=== PATIENT | female | born 1930 | race Caucasian/White ===

== ENCOUNTER → 2016-08-14 | Outpatient (CLI) | payer OTHER ==
[~2016-08-14] MED LIST: B12 SUBQ; TYLENOL325 MG PO; ULTRAM 50MG TAB50 MG PO
== END ==
LOC: RAD 12:21
DX: M40.294 Other kyphosis, thoracic region (principal); M41.86 Other forms of scoliosis, lumbar region; M47.816 Spondylosis without myelopathy or radiculopathy, lumbar region; M54.9 Dorsalgia, unspecified